=== PATIENT | female | born 1995 ===

== ENCOUNTER 2021-03-14 15:01 | Outpatient (REF) | payer MEDICAID, SELFPAY ==
[2021-03-14 15:29] LABS: COVID-19 Test Negative (Negative)
== END 2021-03-14 15:02 | disposition home or self-care (01) ==
LOC: HO.LAB 15:01
PROVIDERS: Visit Provider Internal Medicine
DX: Z20.822 Contact with and (suspected) exposure to COVID-19 (principal)
CPT/HCPCS: 36415; 87635; C9803

== ENCOUNTER 2022-04-02 18:10 | Emergency (ER) | payer MEDICAID, SELFPAY ==
[2022-04-02 18:34] VITALS: BP 116/76; PULSE 78; RESP 14; TEMP 36.5; O2SAT 99; BMI 21.2
--- NOTE | 2022-04-02 20:15 | ED.EAR ---
HPI - Ear Problem General Chief complaint: Ear Problems Stated complaint: ear pain Time Seen by Provider: 04/02/22 20:09 Source: patient Mode of arrival: ambulatory History of Present Illness HPI Narrative: 26-year-old female with no significant past medical history presenting to the ED complaining of left ear pain since this morning. Reports pain is constant. Denies known injury/trauma, fall, recent swimming, drainage from ear, hearing loss, sore throat, fever, chills, cough Complaint: ear pain Location: left ear Duration: constant Related Data Previous Rx's Medication Instructions Recorded amoxicillin 875 mg-potassium 1 tab PO BID 7 Days #14 tab 04/02/22 clavulanate 125 mg tablet Allergies Allergy/AdvReac Type Severity Reaction Status Date / Time No Known Allergies Allergy Unverified 07/21/20 16:35 Review of Systems Review of Systems: Constitutional: No Weight loss, No Fever, No Chills ENT/Mouth: + Ear Pain, No ear drainage, No Nasal Congestion, No sore throat, No Rhinorrhea, No Swallowing Difficulty Cardiovascular: No Chest Pain, No SOB Respiratory: No Cough, No Sputum, No Wheezing Gastrointestinal: No Nausea, No Vomiting, No Diarrhea, No Constipation, No Abdominal pain Genitourinary: No Dysuria, No Urinary Incontinence/retention, No Flank Pain Musculoskeletal: No joint pain, No Myalgias, No Joint Swelling Skin: No Skin Lesions, No rash Neuro: No Weakness, No Numbness, No Paresthesias Yes all other systems are reviewed and are negative [facility] Past Medical History Attestation statement: The following information was validated with the patient. Social History Social History Advance Directives: No Advance Directives Information Provided: No Physical Exam Vital Signs: Vital Signs: Last Vital Signs Temp 97.7 F 04/02/22 18:34 Pulse 78 04/02/22 18:34 Resp 14 04/02/22 18:34 BP 116/76 04/02/22 18:34 Pulse Ox 99 04/02/22 18:34 BMI result Body Mass Index 21.2 Const: General: cooperative, healthy appearing and no acute distress Orientation/consciousness: patient oriented x3 Limitations: no limitations HEENT: Head: Yes normal to inspection and Yes atraumatic Ears: hearing grossly normal bilaterally, external ears normal, TM normal on the right, mastoids normal and TM abnormal dull on the left, erythematous on the left and with loss of landmarks on the left General nose exam: Normal external nose present Face and sinus: Yes normal facial exam Mouth: Normal oral and palatal mucosa present Throat: Yes posterior oropharynx normal, Yes tonsils normal, Yes uvula midline, No peritonsillar mass and No uvular edema Eyes: General: appearance normal, both eyes and all related structures EOM: EOMs intact bilaterally Neck: Neck: Yes normal visual inspection, Yes full ROM, Yes no lymphadenopathy, Yes no meningeal signs, Yes supple and No anterior neck swelling Resp: Effort & Inspection: normal respiratory effort, no respiratory distress, no stridor and not tachypneic Cardio: Rate: regular rate Heart sounds: S1 normal heart sound present and S2 normal heart sound present Skin: Rashes: no rashes Wounds: no wounds Neuro: General: patient oriented x3, tone normal and no meningeal signs Gait exam (Neuro): Normal gait present Extrem: General: Yes normal to inspection MDM - Ear MDM Narrative Medical decision making narrative: 26-year-old female with no significant past medical history presenting to the ED complaining of left ear pain since this morning. On exam vital signs stable, NAD/nontoxic, physical exam as above consistent with otitis media. Mastoids WNL. Low concern for chronic otitis externa or mastoiditis patient given 1st dose of Augmentin in the ED Differential Diagnosis Differential diagnosis: Likely otitis externa, otitis media, ruptured TM and cerumen impaction Medical Records Attestation: I reviewed the patient's medical records. Lab Data Attestation: I reviewed the patient's lab results. Discharge Plan Discharge Clinical Impression: Otitis media Patient Disposition: Home, Self-Care Instructions: Ear Infection (ED) Additional Instructions: You have an inner ear infection. Augmentin is an antibiotic please take as prescribed. Take Tylenol /Motrin as needed for pain/swelling. Please follow-up with her doctor. If symptoms persist or worsen, you fever, hearing loss or drainage from her ear please return to the emergency department Prescriptions: New amoxicillin-pot clavulanate 875-125 mg tablet 1 tab PO BID 7 Days Qty: 14 0RF Referrals: [facility] [Primary Care Provider] -
[2022-04-02] MEDS: Amoxicillin/Potassium Clav 875 MG TABLET PO (21:06)
[2022-04-02 21:11] VITALS: BP 118/75; PULSE 86; RESP 16; TEMP 36.1; O2SAT 100
== END 2022-04-02 21:14 | disposition home or self-care (01) ==
PROVIDERS: Emergency Provider Emergency Medicine Emergency Medical Services
DX: H66.92 Otitis media, unspecified, left ear (principal); H92.02 Otalgia, left ear
CPT/HCPCS: 99282; 99283

== ENCOUNTER 2022-08-10 09:47 | Emergency (ER) | payer MEDICAID, SELFPAY ==
[2022-08-10 10:43] VITALS: BP 100/53; PULSE 65; RESP 14; O2SAT 99; BMI 23.6
--- NOTE | 2022-08-10 12:52 | ED_ITS ---
HPI - General Adult General Chief complaint: General Medical Stated complaint: ingrown toe nail Time Seen by Provider: 08/10/22 12:51 Source: patient Mode of arrival: ambulatory Limitations: no limitations History of Present Illness HPI narrative: 27-year-old female who presents emergency department for evaluation of left great toe pain. The patient states that she had an ingrown toenail 3 years ago. She states that her pain feels similar to when she had an infected toe. She states that over the past 3 days she has had constant, throbbing pain in her left toe. She states her left toe is swollen and red. She denied fever, chills, fatigue, nausea or vomiting. MD complaint: Left great toe pain Onset (ago): day(s) (3) Location: left (Great toe) Severity: moderate Severity scale (1-10): 6 Quality: other (Throbbing) Pain Consistency: constant Relieving factors: none Exacerbating factors: none Associated symptoms: other Related Data Previous Rx's Medication Instructions Recorded amoxicillin 875 mg-potassium 1 tab PO BID 7 days #14 tabs 04/02/22 clavulanate 125 mg tablet cephalexin 500 mg capsule 500 mg PO TID 5 days #15 caps 08/10/22 ibuprofen 600 mg tablet 600 mg PO Q6H PRN pain #30 tabs 08/10/22 Allergies Allergy/AdvReac Type Severity Reaction Status Date / Time No Known Allergies Allergy Unverified 07/21/20 16:35 Review of Systems Review of Systems: Yes all other systems are reviewed and are negative [facility] Past Medical History [facility] Narrative: Past medical history: None. Past surgical history: None. Social history: She denies tobacco, alcohol and drug use. Social History Social History Advance Directives: No Advance Directives Information Provided: Yes Physical Exam ED Vital Signs: Vital Signs - 24 hr 08/10/22 10:43 Pulse Rate 65 Respiratory Rate 14 Blood Pressure 100/53 L Pulse Oximetry 99 Oxygen Delivery Method Room Air BMI result Body Mass Index 23.6 Const Other: Well-appearing, female patient, very pleasant cooperative, does not appear to be in distress Extrem Other: The patient's left great toe has swelling over the lateral aspect of the toe with an obvious ingrown toenail, there is also erythema to the lateral aspect of the toe with purulent drainage coming from ingrown toenail. Patient's extremities neurovascular intact. Course Course Course Narrative: The patient's presentation and physical findings are consistent with an infected ingrown toenail. I was able to remove the ingrown toenail as discussed in the procedure section. Patient was given Keflex 500 mg orally and ibuprofen 600 mg orally. Patient was started on Keflex 500 mg 3 times a day for 5 days and ibuprofen 600 mg every 6 hours as needed for pain. She was given printed and verbal instructions and discharged home. Procedures Procedure Narrative Procedure Narrative: Infected, ingrown toenail-left great toe I did discuss the procedure with the patient and she gave me informed verbal consent. The patient's toe was prepped with Betadine . A digital block was performed using 2% lidocaine, 4 cc was used on each side of the toe. After 10 minutes the patient had sufficient anesthesia to proceed. The ingrown portion of the lateral aspect of the toenail was elevated using hemostats. Using sharp scissors I was able to cut the toenail down and then using the hemostats was able to pull out the residual toenail from the base. There was only minimal bleeding from the procedure. The patient tolerated the procedure well. The patient was given Keflex mg orally and ibuprofen 400 mg orally after the procedure. Discharge Plan Discharge Clinical Impression: Ingrowing toenail with infection, Ingrowing left great toenail Patient Disposition: Home, Self-Care Instructions: Ingrown Nail (ED) Additional Instructions: You had an infected ingrown toenail. I was able to cut the ingrown toenail down to the root so hopefully it will not grow back growing to your skin again. You do have an infection secondary to the ingrown toenail. Take Keflex (cephalexin) 500 mg pills, 1 pill 3 times a day for 5 days. Take ibuprofen 600 mg pills, 1 pills every 6 hours as needed for pain. Soak your foot in warm water 4 times a day for the next 2-3 days, this will also help treat the infection. Follow-up with your doctor in 2 days. Please return to the emergency department if your symptoms get worse or if you develop any symptoms that are concerning to you. Prescriptions: New cephalexin 500 mg capsule 500 mg PO TID 5 Days Qty: 15 0RF ibuprofen 600 mg tablet 600 mg PO Q6H PRN (Reason: pain) Qty: 30 0RF No Action amoxicillin-pot clavulanate 875-125 mg tablet 1 tab PO BID 7 Days Qty: 14 0RF
[2022-08-10] MEDS: cephALEXin 500 MG CAPSULE PO (13:59)
[2022-08-10] MEDS: Ibuprofen 600 MG TABLET PO (13:59)
== END 2022-08-10 14:15 | disposition home or self-care (01) ==
PROVIDERS: Emergency Provider Emergency Medicine Emergency Medical Services
DX: L60.0 Ingrowing nail (principal); M79.672 Pain in left foot; Z79.899 Other long term (current) drug therapy
CPT/HCPCS: 11750; 99283

== ENCOUNTER → 2022-11-26 14:35 | Outpatient (BNVA) | payer MEDICAID, SELFPAY | PROVIDERS: Visit Provider Advanced Practice Midwife | DX: Z34.90 Encounter for supervision of normal pregnancy, unspecified, unspecified trimester (principal) | CPT/HCPCS: 81025; 99202 ==

== ENCOUNTER 2023-08-23 13:31 | Emergency (ER) | payer MEDICAID, SELFPAY ==
[2023-08-23 13:36] VITALS: BP 113/66; PULSE 78; RESP 19; TEMP 36.6; O2SAT 99; BMI 25.4
--- NOTE | 2023-08-23 13:36 | ED.GENADULT ---
HPI - General Adult General Chief complaint: General Medical Stated complaint: ingrown toenail l big toe Time Seen by Provider: 08/23/23 16:53 Related Data Previous Rx's Medication Instructions Recorded vitamin with calcium 1 tab PO DAILY #90 tabs 11/26/22 no.72-iron 27 mg-folic acid 1 mg tablet ( Vitamins Plus Low Iron) bacitracin zinc 500 unit/gram 1 appl topical TID #14 grams 08/23/23 topical ointment ibuprofen 600 mg tablet 600 mg PO Q8H PRN pain #20 tabs 08/23/23 Allergies Allergy/AdvReac Type Severity Reaction Status Date / Time No Known Allergies Allergy Verified 08/23/23 13:36 Review of Systems Review of Systems: Constitutional : No Weight loss, No Fever, No Chills, No Night Sweats, No Fatigue, No Malaise Musculoskeletal : No joint pain, No Myalgias, No Joint Swelling Skin : No Skin Lesions, No rash , right great toe ingrown nail Neuro : No Weakness, No Numbness, No Paresthesias, No Loss of Consciousness, No Dizziness, No Headache Psych : No Anxiety/Panic, No Depression, No SI/HI/AH/VH, No Social Issues, Yes all other systems are reviewed and are negative PMFSH Social History Social History Advance Directives: No Physical Exam ED Vital Signs: Vital Signs - 24 hr 08/23/23 13:36 Temperature 98 F Pulse Rate 78 Respiratory Rate 19 Blood Pressure 113/66 Pulse Oximetry 99 BMI result Body Mass Index 25.4 Const General: healthy appearing, no acute distress and well developed Nutritional Appearance: well nourished Orientation/consciousness: patient oriented x3 HENMT Head: Yes normal to inspection, Yes normocephalic and Yes atraumatic Face and sinus: Yes normal facial exam Mouth: Normal oral and palatal mucosa present Throat: Yes posterior oropharynx normal, Yes tonsils normal and Yes uvula midline Eyes General: appearance normal, both eyes and all related structures Neck Neck: Yes normal visual inspection, Yes full ROM and Yes trachea midline Thyroid: Thyroid normal General: Yes no CVA tenderness Back/Spine/Pelvis Back: no CVA tenderness Skin General skin exam: elasticity normal, turgor normal and dry skin Neuro General: patient oriented x3 Extrem Other: right great toe ingrown toenail, swelling, toe nail intact Psych Appearance: grossly normal Mental Status: mental status grossly normal Speech and movement: Normal speech and movement present Affect: normal affect Attitude: cooperative Thought process: Normal thought process present Thought content: Normal thought content present Insight: Good insight present (Psych) Judgement: Good judgement present (Psych) Course Course Course Narrative: RME performed by Lisseth Horn PA-C. Patient is a 28 year old assigned female at presenting to the emergency department with an ingrown toe nail. Patient placed back in the waiting room pending room availability. 28-year-old female is here for right great toe ingrown toenail. Patient reports that she has this for about 2 weeks. Patient tried cutting it down and currently reports increased pain, draining. Soaking, Reevaluation(s) Reevaluation #1: Patient will be sent home with bacitracin and ibuprofen for pain. Patient was encouraged to return if she will have increase in pain, swelling, fever. Medications Administered Discontinued Medications Generic Name Dose Route Start Last Admin Trade Name Freq PRN Reason Stop Dose Admin Bacitracin 1 appl 08/23/23 18:08 08/23/23 18:12 Bacitracin Oint 0.9 Gm Packet TOPICAL 08/23/23 18:09 1 appl ONCE ONE Administration Protocol Ibuprofen 600 mg 08/23/23 18:08 08/23/23 18:12 Ibuprofen 600 Mg Tablet PO 08/23/23 18:09 600 mg ONCE ONE Administration Discharge Plan Discharge Clinical Impression: Ingrown nail of great toe Patient Disposition: Home, Self-Care Instructions: Ingrown Nail (ED), Warm Compress or Soak (ED) Additional Instructions: You were seen here today for ingrown toenail. Please make sure you soak your foot in warm water and soap. Apply bacitracin. return to ER if you will have increase in pain, swelling, increased redness, fever. Prescriptions: New bacitracin zinc 500 unit/gram ointment 1 appl topical TID Qty: 14 0RF ibuprofen 600 mg tablet 600 mg PO Q8H PRN (Reason: pain) Qty: 20 0RF No Action Vitamin Plus Low Iron 27 mg iron- 1 mg tablet 1 tab PO DAILY Qty: 90 4RF Interventions: ED Discharge Assessment Last Done: 08/23/23 18:20 Discharge Date/Time: 08/23/23 18:20
[2023-08-23] MEDS: Bacitracin Oint 0.9 GM PACKET 1 APPL TOPICAL (18:12)
[2023-08-23] MEDS: Ibuprofen 600 MG TABLET PO (18:12)
== END 2023-08-23 18:20 | disposition home or self-care (01) ==
PROVIDERS: Emergency Provider Internal Medicine
DX: L60.0 Ingrowing nail (principal)
CPT/HCPCS: 99283